=== PATIENT | female | born 1960 | race Caucasian/White ===

== ENCOUNTER 2018-09-07 10:35 | Emergency (ER) | payer SELFPAY ==
[~2018-09-07] VITALS: Ht 167.6 cm; Wt 60.3 kg
[2018-09-07 10:40] VITALS: BP 141/81
--- NOTE | 2018-09-07 10:45 | NUR ---
PT AMBULATED TO ER BED 03
--- NOTE | 2018-09-07 11:07 | NUR ---
58F C/O "BURNING SENSATION" 8/10 ALL OVER BODY, WELL GENERALIZED RED RASHES THOUGHOUT BODY X8 DAYS. RASH "COMES AND GOES". DENIES N/V/FEVERS. PT STATES THIS STARTED SUDDENLY, SHE HAS NEVER HAD THIS HAPPEN BEFORE. SMALL PATCHES OF MACULOPAPULAR RASH NOTED ON RIGHT LOWER EXTREMITY. HX: HTN RX: NONE
--- NOTE | 2018-09-07 11:15 | NUR ---
DR. VIERA AT BEDSIDE EVALUATING PT
[2018-09-07 11:36] VITALS: BP 141/81
--- NOTE | 2018-09-07 11:36 | NUR ---
Patient discharged with v/s stable. Written and verbal after care instructions given and explained. Patient alert, oriented and verbalized understanding of instructions. Carried with steady gait. All questions addressed prior to discharge. ID band removed. Patient advised to follow up with PMD. Rx of CLARITIN AND HYDROCORTISONE given. Patient educated on indication of medication including possible reaction and side effects. Opportunity to ask questions provided and answered.
== END 2018-09-07 11:36 | disposition home or self-care (01) ==
LOC: MED 10:35
DX: R21 Rash and other nonspecific skin eruption (principal); I10 Essential (primary) hypertension
CPT/HCPCS: 99282